=== PATIENT | female | born 1995 | race Caucasian/White ===

== ENCOUNTER 2016-08-20 02:26 | Emergency (ER) | payer MEDICAID ==
[~2016-08-20] VITALS: Ht 160 cm; Wt 54.4 kg
[2016-08-20 03:18] VITALS: BP 110/75
== END 2016-08-20 03:18 | disposition home or self-care (01) ==
LOC: ED 02:26
DX: M26.622 Arthralgia of left temporomandibular joint (principal); T78.40XA Allergy, unspecified, initial encounter; G43.909 Migraine, unspecified, not intractable, without status migrainosus; J45.909 Unspecified asthma, uncomplicated; Z88.5 Allergy status to narcotic agent; X58.XXXA Exposure to other specified factors, initial encounter

== ENCOUNTER 2016-09-28 13:38 | Emergency (ER) | payer MEDICAID ==
[~2016-09-28] VITALS: Ht 160 cm; Wt 51.8 kg
[2016-09-28 18:20] VITALS: BP 108/68
== END 2016-09-28 18:20 | disposition home or self-care (01) ==
LOC: ED 13:38
DX: J02.8 Acute pharyngitis due to other specified organisms (principal); B96.89 Other specified bacterial agents as the cause of diseases classified elsewhere; J45.909 Unspecified asthma, uncomplicated; G43.909 Migraine, unspecified, not intractable, without status migrainosus; Z88.5 Allergy status to narcotic agent
CPT/HCPCS: J0561

== ENCOUNTER 2017-05-23 14:14 | Emergency (ER) | payer OTHER ==
[~2017-05-23] VITALS: Ht 160 cm; Wt 56.4 kg
[2017-05-23 14:20] VITALS: Ht 160 cm; Wt 56.4 kg
[2017-05-23 16:29] LABS: BASOPHIL % 0.8 % (0-2); PLATELET COUNT 273 x10^3mcL (130-400); RED CELL DISTRIBUTION WIDTH 13.4 % (11.5-14.5)
[2017-05-23 16:42] LABS: CALCIUM 8.8 mg/dL (8.5-10.1); CARBON DIOXIDE 27.6 mmol/L (21-32); CHLORIDE SERUM 104 mmol/L (98-107); CREATININE SERUM 0.8 mg/dL (0.6-1.0); GFR1 > 60 mL/min; GLUCOSE SERUM 88 mg/dL (74-106); POTASSIUM SERUM 3.8 mmol/L (3.5-5.1); SODIUM SERUM 141 mmol/L (136-145)
[2017-05-23 17:45] VITALS: BP 116/74
== END 2017-05-23 17:45 | disposition home or self-care (01) ==
LOC: ED 14:14
PROVIDERS: Emergency Medicine
DX: N93.8 Other specified abnormal uterine and vaginal bleeding (principal); R10.2 Pelvic and perineal pain; J45.909 Unspecified asthma, uncomplicated; Z88.5 Allergy status to narcotic agent
CPT/HCPCS: 36415; J1885

== ENCOUNTER 2017-12-24 02:56 | Emergency (ER) | payer OTHER ==
[~2017-12-24] VITALS: Ht 160 cm; Wt 54.7 kg
[2017-12-24 03:04] VITALS: Ht 160 cm; Wt 54.7 kg
[2017-12-24 05:24] VITALS: BP 112/57
[2017-12-24 05:32] LABS: AMPHETAMINE QUAL UR NONE DETECTED (See below)
== END 2017-12-24 05:24 | disposition home or self-care (01) ==
LOC: ED 02:56
PROVIDERS: Emergency Medicine
DX: F41.9 Anxiety disorder, unspecified (principal); G47.00 Insomnia, unspecified; G43.909 Migraine, unspecified, not intractable, without status migrainosus; J45.909 Unspecified asthma, uncomplicated; Z88.6 Allergy status to analgesic agent
CPT/HCPCS: Q0163

== ENCOUNTER 2018-03-18 16:31 | Emergency (ER) | payer OTHER ==
[~2018-03-18] VITALS: Ht 160 cm; Wt 57.6 kg
[2018-03-18 16:51] VITALS: Ht 160 cm; Wt 57.6 kg
[2018-03-18 18:36] VITALS: BP 100/60
== END 2018-03-18 19:10 | disposition home or self-care (01) ==
LOC: ED 16:31
DX: J06.9 Acute upper respiratory infection, unspecified (principal); H66.92 Otitis media, unspecified, left ear; G43.909 Migraine, unspecified, not intractable, without status migrainosus; J45.909 Unspecified asthma, uncomplicated; F41.9 Anxiety disorder, unspecified; Z88.5 Allergy status to narcotic agent
CPT/HCPCS: Q0092

== ENCOUNTER 2018-09-17 23:51 | Emergency (ER) | payer OTHER ==
[~2018-09-17] VITALS: Ht 160 cm; Wt 62.8 kg
[2018-09-17 23:55] VITALS: Ht 160 cm; Wt 62.8 kg
[2018-09-18 00:22] LABS: BASOPHIL % 0.5 % (0-2); PLATELET COUNT 203 x10^3mcL (130-400); RED CELL DISTRIBUTION WIDTH 12.7 % (11.5-14.5)
[2018-09-18 00:41] LABS: CALCIUM 8.7 mg/dL (8.5-10.1); CARBON DIOXIDE 26.1 mmol/L (21-32); CHLORIDE SERUM 106 mmol/L (98-107); CREATININE SERUM 0.8 mg/dL (0.6-1.0); GFR1 > 60 mL/min; GLUCOSE SERUM 101 mg/dL (74-106); POTASSIUM SERUM 3.7 mmol/L (3.5-5.1); SODIUM SERUM 141 mmol/L (136-145)
[2018-09-18 00:43] LABS: ALBUMIN 3.7 g/dL (3.4-5.0); ALKALINE PHOSPHATASE 81 U/L (46-116); ALT/SGPT 32 U/L (14-59); AST/SGOT 22 U/L (15-37); BILIRUBIN TOTAL 0.21 mg/dL (0.20-1.00); LIPASE 318 IU/L (73-393); TOTAL PROTEIN, SERUM 7.2 g/dL (6.4-8.2)
[2018-09-18 01:45] VITALS: BP 106/71
== END 2018-09-18 01:45 | disposition home or self-care (01) ==
LOC: ED 23:51
PROVIDERS: Emergency Medicine
DX: K21.9 Gastro-esophageal reflux disease without esophagitis (principal); J45.909 Unspecified asthma, uncomplicated; G43.909 Migraine, unspecified, not intractable, without status migrainosus; Z88.5 Allergy status to narcotic agent
CPT/HCPCS: 36415; J2405; Q0092; Q0162

== ENCOUNTER 2018-11-04 19:28 | Emergency (ER) | payer OTHER ==
[~2018-11-04] VITALS: Ht 160 cm; Wt 63.7 kg
[2018-11-04 19:29] VITALS: BP 131/75
== END 2018-11-04 22:05 | disposition home or self-care (01) ==
LOC: ED 19:28
DX: J02.9 Acute pharyngitis, unspecified (principal); J45.909 Unspecified asthma, uncomplicated; G43.909 Migraine, unspecified, not intractable, without status migrainosus; F41.9 Anxiety disorder, unspecified; K58.9 Irritable bowel syndrome, unspecified; Z88.6 Allergy status to analgesic agent
CPT/HCPCS: J1100